=== PATIENT | female | born 1995 | race Caucasian/White ===

== ENCOUNTER → 2018-06-28 | Outpatient (CLI) | payer BC ==
[~2018-06-28] MED LIST: PREN-127 PO
[2018-06-28 09:51] LABS: PLATELET COUNT, AUTOMATED 281 K/uL (150-450)
== END ==
LOC: LAB 08:37
PROVIDERS: ATTEND Obstetrics & Gynecology
DX: Z36.9 Encounter for antenatal screening, unspecified (principal); Z11.3 Encounter for screening for infections with a predominantly sexual mode of transmission
CPT/HCPCS: 36415; 81001; 85025; 86592; 86703; 86762; 86850; 86900; 86901; 87088; 87340; 87491; 87591

== ENCOUNTER → 2018-06-29 | Outpatient (CLI) | payer BC | LOC: LAB 11:31 | PROVIDERS: ATTEND Student in an Organized Health Care Education/Training Program | DX: Z34.91 Encounter for supervision of normal pregnancy, unspecified, first trimester (principal) | CPT/HCPCS: 87491; 87591 ==

== ENCOUNTER → 2018-09-02 | Outpatient (CLI) | payer BC ==
--- NOTE | 2018-09-02 16:33 | RADIOLOGY IMAGING REPORT ---
FACILITY: [facility] - [place] PATIENT NAME: Martha Gonsalez : 1995 MR: [id number] V: [id number] EXAM DATE: ORDERING PHYSICIAN: KENYETTA BECK TECHNOLOGIST: Location: [facility] - [place], [place] Patient: Martha Gonsalez : 1995 Visit/Account:[id number] Date of Sevice: 09/02/2018 OB Ultrasound HISTORY: Anatomic survey COMPARISON STUDIES: None available FINDINGS: Intrauterine gestations: one presentation: Variable heart rate: 120 bpm Amniotic fluid index: 13.4 cm Largest amniotic fluid pocket 4.2 cm Placenta: Anterior without previa Uterus: gravid, otherwise normal Maternal adnexa: Unremarkable Cervix: long and closed Gestational Parameters: BPD: 4.6 cm 19 weeks 6 days, 74th percentile HC: 16.9 cm 19 weeks 4 days, 55th percentile AC: 13.5 cm 19 weeks 0 days, 34th percentile FL: 3.1 cm 19 weeks 4 days, 51st percentile Average ultrasound age (AUA): 19 weeks 4 days YOU: 01/23/2019 Estimated weight (EFW): 284 g EFW: 45th percentile Anatomic Survey: Intracranial structures, 4-chamber heart, stomach, kidneys, urinary bladder, spine, 3-vessel cord and cord insertion are unremarkable. Two upper and two lower extremities visualized. IMPRESSION: 1. Single live intrauterine gestation with dates and measurements as above. 2. Unremarkable anatomic survey Report Dictated By: Cipriano Blank at 09/02/2018 4:21 PM Report E-Signed By: Cipriano Blank at 09/02/2018 4:25 PM WSN:[id number]
== END ==
LOC: RAD 13:02
PROVIDERS: ATTEND Student in an Organized Health Care Education/Training Program
DX: Z02.9 Encounter for administrative examinations, unspecified (principal)